=== PATIENT | female | born 1965 | race Two or more races ===

== ENCOUNTER → 2017-12-21 | Emergency (ER) | payer OTHER ==
[~2017-12-21] VITALS: Ht 144.8 cm; Wt 68.0 kg
[~2017-12-21] MED LIST: CIPRO500 MG PO; FIORICET 50-321 EACH PO; FIORICET-COD 31 EACH PO; INTESTINEX1 CA1 PO; PEPCID20 MG; PEPCID40 MG PO; PHENERGAN25 MG PO; PROTONIX20 MG PO; PROTONIX40 M1; PROTONIX40 MG; SYNTHROID50 MCG; SYNTHROID75 MCG; ZANTAC150 MG PO
== END | disposition home or self-care (01) ==
LOC: ER 23:13
DX: G43.109 Migraine with aura, not intractable, without status migrainosus (principal)

== ENCOUNTER 2017-12-24 19:06 | Emergency (ER) | payer OTHER ==
[~2017-12-24] VITALS: Ht 144.8 cm; Wt 68.0 kg
[~2017-12-24 19:06] MED LIST changes: -PROTONIX20 MG PO
[2017-12-24] MEDS ORDERED: PROTONIX20 MG PO (19:14)
== END 2017-12-24 23:07 | disposition home or self-care (01) ==
LOC: ER 19:06
DX: K29.60 Other gastritis without bleeding (principal); K52.89 Other specified noninfective gastroenteritis and colitis

== ENCOUNTER 2019-02-03 17:43 | Emergency (ER) | payer OTHER ==
[~2019-02-03] VITALS: Ht 144.8 cm; Wt 63.5 kg
[~2019-02-03 17:43] MED LIST changes: +PROTONIX20 MG PO
[2019-02-03] MEDS ORDERED: CLONAZEPAM2 M1 (17:52)
[2019-02-03] MEDS ORDERED: ZOLOFT100 MG (17:52)
[2019-02-03] MEDS ORDERED: FORTAMET500 MG (17:52)
[2019-02-03] MEDS ORDERED: ZANTAC 7575 MG (17:52)
[2019-02-03] MEDS ORDERED: RESTORIL15 M1 (17:53)
== END 2019-02-03 20:11 | disposition home or self-care (01) ==
LOC: ER 17:43
DX: K58.8 Other irritable bowel syndrome (principal); F41.8 Other specified anxiety disorders

== ENCOUNTER 2019-08-21 11:26 | Emergency (ER) | payer OTHER ==
[~2019-08-21] VITALS: Ht 134.6 cm; Wt 68.0 kg
[~2019-08-21 11:26] MED LIST changes: +CLONAZEPAM2 M1; +FORTAMET500 MG; +RESTORIL15 M1; +ZANTAC 7575 MG; +ZOLOFT100 MG
== END 2019-08-21 15:34 | disposition home or self-care (01) ==
LOC: ER 11:26
DX: K29.00 Acute gastritis without bleeding (principal)

== ENCOUNTER 2021-04-26 16:12 | Emergency (ER) | payer OTHER ==
[~2021-04-26] VITALS: Ht 144.8 cm; Wt 68.0 kg
[~2021-04-26 16:12] MED LIST changes: +BENADRYL50 MG PO; +CLONAZEPAM2 MG PO; +COLACE100 MG PO; +DICY20TA PO; +FORTAMET500 MG PO; +MEDROLPACK PO; +NEURONTIN300 MG PO; +PERCOCET 5-3251 EACH PO; +PROTONIX40 MG PO; +SYNTHROID50 MCG PO; +TEMAZEPAM30 MG PO
[2021-04-27] MEDS ORDERED: CARAFATE1 GM PO (08:35)
[2021-04-27] MEDS ORDERED: PROTONIX20 MG PO (08:35)
[2021-04-27] MEDS ORDERED: PEPCID AC20 MG PO (08:35)
== END 2021-04-27 08:44 | disposition home or self-care (01) ==
LOC: ER 16:12
DX: K29.70 Gastritis, unspecified, without bleeding (principal); M54.2 Cervicalgia; R51.9 Headache, unspecified; R11.0 Nausea; F41.1 Generalized anxiety disorder

== ENCOUNTER 2023-01-31 13:46 | Emergency (ER) | payer OTHER ==
[~2023-01-31] VITALS: Ht 144.8 cm; Wt 64.4 kg
[~2023-01-31 13:46] MED LIST changes: +CARAFATE1 GM PO; +PEPCID AC20 MG PO
[2023-01-31] MEDS ORDERED: TIROSINT75 MCG PO (14:05)
== END 2023-01-31 18:50 | disposition home or self-care (01) ==
LOC: ER 13:46
DX: N39.0 Urinary tract infection, site not specified (principal); G43.909 Migraine, unspecified, not intractable, without status migrainosus; R30.0 Dysuria; Z88.0 Allergy status to penicillin; Z88.2 Allergy status to sulfonamides; Z88.6 Allergy status to analgesic agent; E11.9 Type 2 diabetes mellitus without complications; Z79.84 Long term (current) use of oral hypoglycemic drugs; E03.9 Hypothyroidism, unspecified

== ENCOUNTER 2025-08-25 17:37 | Emergency (ER) | payer OTHER ==
[~2025-08-25] VITALS: Ht 144.8 cm; Wt 68.0 kg
[~2025-08-25 17:37] MED LIST changes: +TIROSINT75 MCG PO
[2025-08-25] MEDS ORDERED: LEVO-T75 MCG (17:41)
[2025-08-25] MEDS ORDERED: AMITRIPTYLINE150 MG PO (17:42)
[2025-08-25] MEDS ORDERED: GLYXAMBI 25 MG1 EACH PO (17:42)
[2025-08-25] MEDS ORDERED: METOPROLOL SUCC50 MG PO (17:42)
[2025-08-25] MEDS ORDERED: TRAZODONE HCL150 MG (17:42)
[2025-08-25] MEDS ORDERED: EZETIMIBE10 MG PO (17:43)
[2025-08-25] MEDS ORDERED: BUSPIRONE HCL15 MG PO (17:43)
[2025-08-25] MEDS ORDERED: ATORVASTATIN CA40 MG PO (17:43)
[2025-08-25] MEDS ORDERED: MONTELUKAST SODI4 M1 (17:44)
[2025-08-25] MEDS ORDERED: LANTUS SOL100 UNIT/1 SQ (17:44)
[2025-08-25] MEDS ORDERED: NEURONTIN800 MG PO (17:44)
[2025-08-25] MEDS ORDERED: FAMOTIDINE/PF 20 MG/2 ML VIAL IV STA (19:00)
[2025-08-25] MEDS ORDERED: 0.9 % SODIUM CHLORIDE 1,000 ML IV STA ×2 (19:00→22:43)
[2025-08-25] MEDS ORDERED: ONDANSETRON HCL 2 MG/ML VIAL IV STA (19:00)
[2025-08-25] MEDS ORDERED: HYOSCYAMINE SULFATE 0.125 MG TAB.SUBL SL ONE (19:00)
[2025-08-25] MEDS ORDERED: FAMOTIDINE/PF 20 MG/2 ML VIAL ONE (20:10)
[2025-08-25] MEDS ORDERED: ONDANSETRON HCL 2 MG/ML VIAL ONE (20:10)
[2025-08-25] MEDS ORDERED: HYOSCYAMINE SULFATE 0.125 MG TAB.SUBL ONE (20:10)
[2025-08-25 20:37] LABS: BASO % 0.5 % (0.1-1.2); EOS # 0.05 (0.04-0.54); EOS % 0.6 % (0.7-7.0); LYMPH # 3.54 (1.18-3.74); LYMPH % 45.7 % (19.3-53.1); MEAN PLATELET VOLUME 8.60 fl (9.4-12.4); MONO # 0.50 (0.24-0.82); MONO % 6.5 % (4.7-12.5); NEUT # 3.50 (1.56-6.13); NEUT % 45.2 % (34.0-71.1); RED CELL DISTRIBUTION WIDTH 12.5 % (11.6-14.4)
[2025-08-25 20:46] LABS: ERYTHROCYTE SEDIMENTATION RATE 9 mm/hr (0-30)
[2025-08-25 20:53] LABS: URINE APPEARANCE Clear; URINE BILIRRUBIN Negative (NEGATIVE); URINE BLOOD Negative; URINE COLOR Yellow; URINE KETONE Negative (NEGATIVE); URINE LEUKOCYTE Small; URINE NITRATE Negative; URINE PROTEIN Negative (NEGATIVE); URINE UROBILINOGEN 0.2 E.U./dl
[2025-08-25 20:58] LABS: URINE BACTERIA 255.0 uL (0.0-1933); URINE EPITHELIAL CELLS 24.2 uL (0.0-38.8); URINE WBC 46.2 uL (0.0-23.2)
[2025-08-25 21:01] LABS: URINE CAST 0.00 uL (0.0-1.40); URINE GLUCOSE >=1000 MG/DL (NEGATIVE); URINE RBC 0.4 uL (0.0-20.8)
[2025-08-25 21:24] LABS: ALT/SGPT 19.0 U/L (12-78); AST/SGOT 10.0 U/L (15-37); BILIRUBIN TOTAL 0.3 mg/dL (0.3-1.2); BUN CREA RATIO 15.0 (7.0-25.0); CREATININE SERUM 0.6 mg/dL (0.55-1.02); GFR 101.63; GLOBULINA 3.6 G/DL (2.4-3.5); GLUCOSE FASTING 109.0 mg/dL (65-100); OSMOLALITY SERUM 282.0 MOSM/KG (275-295)
[2025-08-25 21:41] LABS: INR 0.98
[2025-08-25] MEDS ORDERED: MORPHINE SULFATE 4 MG/ML VIAL IV STA (22:44)
[2025-08-26] MEDS ORDERED: 0.9 % SODIUM CHLORIDE 1,000 ML IV STA (01:47)
[2025-08-26] MEDS ORDERED: DICYCLOMINE HCL 20 MG TABLET PO STA (01:47)
[2025-08-26] MEDS ORDERED: DICYCLOMINE HCL 10 MG CAPSULE PO ONE (03:40)
[2025-08-26] MEDS ORDERED: MORPHINE SULFATE 4 MG/ML VIAL IV ONE (04:00)
[2025-08-26] MEDS ORDERED: MORPHINE SULFATE 4 MG/ML VIAL IV PRN (05:30)
[2025-08-26] MEDS ORDERED: ONDANSETRON HCL 2 MG/ML VIAL IV PRN (05:30)
[2025-08-26] MEDS ORDERED: METRONIDAZOLE/SODIUM CHLORIDE 500 MG/100 ML PIGGYBACK IV SCH (09:00)
[2025-08-26] MEDS ORDERED: FAMOTIDINE/PF 20 MG/2 ML VIAL IV SCH (09:00)
[2025-08-26] MEDS ORDERED: ONDANSETRON HCL 2 MG/ML VIAL ONE (09:04)
[2025-08-26] MEDS ORDERED: FAMOTIDINE/PF 20 MG/2 ML VIAL ONE (09:04)
[2025-08-26] MEDS ORDERED: METRONIDAZOLE/SODIUM CHLORIDE 500 MG/100 ML PIGGYBACK IV ONE ×2 (09:04→15:16)
[2025-08-26] MEDS ORDERED: ACETAMINOPHEN 500 MG GEL..CAP PO ONE ×2 (11:00→11:15)
[2025-08-26] MEDS ORDERED: IPRATROPIUM BROMIDE 0.5 MG/2.5 ML AMPUL.NEB IH ONE (17:00)
[2025-08-26] MEDS ORDERED: LEVALBUTEROL HCL 0.63 MG/3 ML SOLUTION IH ONE (17:00)
== END 2025-08-26 17:17 | disposition home or self-care (01) ==
LOC: ER 17:38
PROVIDERS: Physician Assistant Medical
DX: R10.819 Abdominal tenderness, unspecified site (principal); K52.89 Other specified noninfective gastroenteritis and colitis; Z88.0 Allergy status to penicillin; Z88.6 Allergy status to analgesic agent; Z88.1 Allergy status to other antibiotic agents; M19.90 Unspecified osteoarthritis, unspecified site; I10 Essential (primary) hypertension; E03.8 Other specified hypothyroidism; K57.32 Diverticulitis of large intestine without perforation or abscess without bleeding; J45.909 Unspecified asthma, uncomplicated; E11.9 Type 2 diabetes mellitus without complications; Z79.84 Long term (current) use of oral hypoglycemic drugs
CPT/HCPCS: 36415; 74177; 93005; 96365; 96366; 99284; J2270; J2405; J3490; J7030; Q9965